=== PATIENT | male | born 1960 | race Caucasian/White ===

== ENCOUNTER → 2016-07-24 | Outpatient (CLI) | payer OTHER ==
[~2016-07-24] MED LIST: ALEVE220 M2 PO; CINNAMON500 MG PO; COZAAR50 MG PO; ESSENTIAL DAIL1 EACH PO; KRILL OIL 3001 EACH PO; LIPITOR40 MG PO; MAG6464 M2 PO
== END | disposition home or self-care (01) ==
LOC: CDC 07-22 14:00
DX: Z01.810 Encounter for preprocedural cardiovascular examination (principal); S83.241A Other tear of medial meniscus, current injury, right knee, initial encounter; M25.562 Pain in left knee
CPT/HCPCS: 93000

== ENCOUNTER 2016-08-01 13:05 | Day surgery (SDC) | payer OTHER ==
[~2016-08-01] VITALS: Ht 177.8 cm; Wt 103.8 kg
[2016-08-01 13:29] VITALS: BP 144/86
[2016-08-01 17:00] VITALS: BP 152/99
[2016-08-01 17:19] VITALS: BP 145/86
[2016-08-01 18:20] VITALS: BP 136/82
== END 2016-08-01 18:45 | disposition home or self-care (01) ==
LOC: SDC 13:05
PROC: 0MQP4ZZ Repair Left Knee Bursa and Ligament, Percutaneous Endoscopic Approach (ICD-10-PCS; principal; 2016-08-01)
DX: M23.204 Derangement of unspecified medial meniscus due to old tear or injury, left knee (principal); M94.262 Chondromalacia, left knee; I10 Essential (primary) hypertension
CPT/HCPCS: J1100; J1170; J2250; J2405; J2795; J3010